=== PATIENT | female | born 1955 | race Caucasian/White ===

== ENCOUNTER → 2016-08-22 | Outpatient (CLI) | payer BC ==
[~2016-08-22] MED LIST: AMOX500C5 PO; MAALIDOBEN PO
[2016-08-22 11:18] VITALS: BP 132/86
--- NOTE | 2016-08-22 11:18 | Urgent Care T Sheet Gen (E) ---
Intake General Temperature (Fahrenheit): 98.7 Pulse: 96 Blood Pressure Systolic: 132 Blood Pressure Diastolic: 86 Respirations: 16 SPO2: 97 Chief Complaint: UC Ear/Nose/Throat Complaint Description of Symptoms 60 year old female presents with sore throat. Pt states onset was yesterday. Describes associated headache and swollen glands. States the pain in her throat was so bad that it woke her up. States pain is worse with swallowing. Denies difficulty managing secretions, fever, or chills. States she has hot flashes so she may have a fever and not know it. States her eyes are scratchy feeling too. Denies cough, nasal drainage or congestion. Source: Patient Exam Limitations: No limitations History of Present Illness Onset & Duration: Days (yesterday) Timing: Worse Severity: Severe Modifying Factors: Other (Pain is worse with swallowing) Associated Symptoms: Other (Ear pain, headache, eyes dry and scratch. ) Recent Trauma: No Similar Sympotms Previously: Yes (states it feels like strep throat) Home Meds Active Scripts Diphenhydramine HCl (Maalox/Lidocaine/Benadryl Oral Solution)30 Ml Soln5 Ml PO QID PRN PAIN #1 BTL Swish, gargle, and spit 5 ml. Prov:SHELBIE LOCKE [employer] 08/22/16 Amoxicillin (Amoxil)500 Mg [id number] Mg PO BID Infection #20 CAP Ref 0 Prov:SHELBIE LOCKE [employer] 08/22/16 Respiratory Constitutional Symptoms: Malaise EENTM: No Blurred vision, No Eye tearing, Other (sore throat, eyes feel dry and scratchy) Respiratory: No Cough, No Short of breath, No Stridor, No Wheezing Cardiovascular: No Chest pain, No Edema, No Palpitations Gastrointestinal/Abdominal: No Abdominal pain, No Constipation, No Diarrhea, No Black stools, No Nausea, No Vomiting Genitourinary: No symptoms reported Skin: No Change in color, No Lesions, No Rash Neurological: Headache (states pain is across forehead, pain is mild)No Numbness, No Paresthesia, No Tingling, No Tremors, No Weakness All Other Systems Reviewed Remaining Systems: All other systems reviewed with negative findings Past [id number] Hx Cardiovascular Cardiovascular History: Hypertension Neuro/Muscular Comment: ADHD HEENT HEENT History: Other (Hypothyroidism) Psychosocial Behavior Disorders: Depression Physical Exam Physical Exam General Appearance: WD/WN No apparent distress Eyes, Ears, Nose, Throat Ex: PERRL/EOMI TMs normal Pharyngeal erythema ( Airway patent, no difficulty managing secretions) Tonsillar exudate Neck Exam: Non tender Full range of motion Normal inspection Lymphadenopathy ( anterior cervical chain) Respiratory Exam: Chest non-tender Lungs clear Normal breath sounds No respiratory distress No accessory muscles used Cardiovascular Exam: Regular rate, rhythm No edema No gallop No JVD No murmur GI/ Exam: Non tender No organomegaly Normal bowel sounds No distention Back Exam: Normal Inspection Skin Exam: Normal color Warm/dry/intact No rashes No embolic lesions Extremity Exam: Non-tender Full range of motion Normal capillary refill No pedal edema No calf tenderness Neurologic/Psychiatric Exam: Oriented times 4 CN's II-X nml No motor deficits No sensory deficits Mood/affect nml Progress/Orders Lab Results Labs Results: Rapid Strep Departure Urgent Care Impression Chief Complaint: UC Ear/Nose/Throat Complaint Impression: Primary Impression: Pharyngitis Qualified Code: J02.0 - Streptococcal pharyngitis Departure Disposition: HOME OR SELF-CARE Additional Disposition Comment Pt advised of POSITIVE rapid strep. Encourage Tylenol for pain control, rest and increased fluids. Magic mouth wash given and instructed to swish, gargle, and spit 5ml QID for pain relief. Discussed Amoxicillin and adverse drug reactions. If symptoms persist or worsen, advised pt to return to care. Condition: Stable Referrals: JENNIFER PARIKH MD (PCP) Scripts Diphenhydramine HCl (Maalox/Lidocaine/Benadryl Oral Solution)30 Ml Soln5 Ml PO QID PRN PAIN #1 BTL Swish, gargle, and spit 5 ml. Prov:SHELBIE LOCKE APRN 08/22/16 Amoxicillin (Amoxil)500 Mg [id number] Mg PO BID Infection #20 CAP Ref 0 Prov:SHELBIE LOCKE APRN 08/22/16 End of report . SHELBIE LOCKE APRN Aug 22, 2016 11:18
== END ==
LOC: MHUC 10:40
PROVIDERS: ATTEND Nurse Practitioner Family
DX: J02.0 Streptococcal pharyngitis (principal)
CPT/HCPCS: 87880; 99213